=== PATIENT | male | born 1965 | race Two or more races ===

== ENCOUNTER 2024-01-05 05:15 | Day surgery (SDC) | payer OTHER ==
[2023-12-30 12:50] VITALS: BP 143/74
[2024-01-05] MEDS ORDERED: LIDOCAINE HCL 1%/EPINEPHRINE 20ML VIAL IJ ONE (08:00)
[2024-01-05] MEDS ORDERED: BUPIVACAINE HCL 30 ML VIAL IJ ONE (08:00)
[2024-01-05] MEDS ORDERED: HEMOSTATIC MATRIX 1 KIT KIT TOP ONE (08:15)
[2024-01-05] MEDS ORDERED: CEFTRIAXONE SODIUM 2,000 MG VIAL IV ONE (08:15)
[2024-01-05] MEDS ORDERED: METRONIDAZOLE/SODIUM CHLORIDE 500 MG/100 ML PIGGYBACK IV ONE (08:15)
[2024-01-05] MEDS ORDERED: DIBUCAINE 30 GM TUBE RECTAL ONE (08:15)
== END 2024-01-05 12:45 | disposition home or self-care (01) ==
LOC: CIR.AMB 05:15
PROVIDERS: ATTEND Colon & Rectal Surgery
DX: K60.30 Anal fistula, unspecified (principal); K60.50 Anorectal fistula, unspecified

== ENCOUNTER 2024-05-31 09:31 | Day surgery (SDC) | payer OTHER ==
[2024-05-24 13:37] VITALS: BP 116/78
[~2024-05-31] VITALS: Ht 180.3 cm; Wt 105.2 kg
[~2024-05-31 09:31] MED LIST: RELAFEN DS1000 MG
[2024-05-31] MEDS ORDERED: HEMOSTATIC MATRIX 1 KIT KIT TOP ONE (12:43)
[2024-05-31] MEDS ORDERED: DIBUCAINE 30 GM TUBE ONE (12:43)
[2024-05-31] MEDS ORDERED: METRONIDAZOLE/SODIUM CHLORIDE 500 MG/100 ML PIGGYBACK IV ONE (12:43)
[2024-05-31] MEDS ORDERED: BUPIVACAINE HCL/MPF 0.5% 30ML VIAL ONE (12:43)
[2024-05-31] MEDS ORDERED: POVIDONE-IODINE 118 ML BOTT TOP ONE (12:43)
[2024-05-31] MEDS ORDERED: LIDOCAINE HCL 1%/EPINEPHRINE 20ML VIAL IJ ONE (12:43)
== END 2024-05-31 18:30 | disposition home or self-care (01) ==
LOC: CIR.AMB 09:31
PROVIDERS: ATTEND Colon & Rectal Surgery
DX: K60.311 Anal fistula, simple, initial (principal); K60.50 Anorectal fistula, unspecified; E11.9 Type 2 diabetes mellitus without complications; M19.90 Unspecified osteoarthritis, unspecified site